=== PATIENT | male | born 1960 | race Caucasian/White ===

== ENCOUNTER 2017-03-02 14:06 | Emergency (ER) | payer OTHER ==
[2017-03-02 14:15] VITALS: PULSE 62; RESP 16; TEMP 97.9
--- NOTE | 2017-03-02 14:37 | CPEKG ---
Heart Rate: 61 RR Interval: 984 P-R Interval: 232 QRSD Interval: 102 QT Interval: 400 QTC Interval: 403 P [place]: -53 QRS [place]: 123 T Wave [place]: 199 EKG Severity - ABNORMAL ECG - EKG Impression: SINUS OR ECTOPIC ATRIAL RHYTHM EKG Impression: FIRST DEGREE AV BLOCK EKG Impression: PROBABLE RIGHT VENTRICULAR HYPERTROPHY EKG Impression: NONSPECIFIC T ABNORMALITIES, LATERAL LEADS EKG Impression: When compared to prior EKG dated 02/28/2017, performed at [facility] EKG Impression: Hospital appreciate no significant interval change- stable anterolateral EKG Impression: T-wave inversions are present. Electronically Signed By: Jf Leung 03-Mar-2017 00:48:54
[2017-03-02 15:06] LABS: % IMMATURE GRANULYOCYTES 0.3 % (0.0-1.1); ABSOLUTE IMMATURE GRANULOCYTES 0.01 10^3/uL (0.00-0.10); ADD DIFF? NO; ADD MORPH? NO; ADD SCAN? NO; ATYPICAL LYMPHOCYTE FLAG 10 (0-99); FRAGMENT RBC FLAG 0 (0-99); HEMATOCRIT 41.2 % (40.0-51.0); HEMOGLOBIN 14.8 g/dL (13.7-17.5); LEFT SHIFT FLG 0 (0-99); LIPEMIA HEMOLYSIS FLAG 90 (0-99); MEAN CELL HEMOGLOBIN 33.2 pg (27.9-34.1); MEAN CELL HEMOGLOBIN CONCENTR. 35.9 g/dL (32.4-36.7); MEAN CELL VOLUME 92.4 fL (81.5-99.8); MEAN PLATELET VOLUME 10.5 fL (8.7-11.7); PLATELET CLUMPS FLAG 0 (0-99); PLATELET COUNT 132 10^3/uL (150-400); RED BLOOD CELL COUNT 4.46 10^6/uL (4.40-6.38); RED CELL DISTRIBUTION WIDTH 12.7 % (11.5-15.2)
[2017-03-02 15:22] LABS: ALANINE AMINOTRANSFERASE 51 IU/L (21-72); ALBUMIN 3.6 g/dL (3.5-5.0); ALKALINE PHOSPHATASE 130 IU/L (38-126); ANION GAP 9 mEq/L (8-16); ASPARTATE AMINOTRANSFERASE 37 IU/L (17-59); BILIRUBIN,TOTAL 1.5 mg/dL (0.1-1.4); BILIRUBIN-CONJUGATED 0.5 mg/dL (0.0-0.5); CARBON DIOXIDE 26 mEq/l (22-31); CHLORIDE 102 mEq/L (97-110); CREATININE 0.9 mg/dL (0.7-1.3); GLOMERULAR FILTRATION RATE > 60; GLUCOSE 81 mg/dL (70-100); POTASSIUM 3.8 mEq/L (3.5-5.2); SODIUM 137 mEq/L (134-144); TOTAL PROTEIN 6.6 g/dL (6.3-8.2)
[2017-03-02 15:48] LABS: APTT 37.5 SEC (23.0-38.0); INR 2.45 (0.83-1.16); PROTIME(PATIENT) 26.4 SEC (12.0-15.0)
--- NOTE | 2017-03-02 17:15 | UCPHY ---
H & P Patient Type: Established Chief Complaint Nursing Narrative: r upper abd pain x several months intermittently. denies n/v/d Time Seen by Provider: 03/02/17 15:32 HPI/ROS: This patient has had 3 months of intermittent right upper quadrant pain with no clear exacerbating factors. He reports peak intensity is 3/10. He describes the nature of the pain as achy. He noticed last night that he had tenderness to the area when he rolled on his side while in bed. He also noted that while walking he had increased pain in the area this week. He is on the same walk in the past without any symptoms. Yesterday while golfing and jogging to get his golf ball he reports an episode that felt like fluttering in his chest mild discomfort in the same area. This was fleeting and resolved without intervention. He has also noticed in recent months more dyspnea on exertion that in the past. ROS: No fevers or chills. No significant fatigue. No other constitutional symptoms. HEENT: No recent URI symptoms. No sore throat. Pulmonary: No pleuritic pain. No coughing. Cardiovascular: The patient has no chest pain. He did have his description of a vibration in his chest yesterday when he was jogging after golf ball. None no heart palpitations or strain sensations chest since. GI: He has noticed any significant association between the right upper quadrant pain in eating. No nausea vomiting. No change in his bowel habits- typically a bowel movement a day or so. : No urinary symptoms. Integumentary: No skin rash. 10 point ROS is otherwise negative. 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 valve replacement Atrial fib cardioverted to arrival in a scheduled cardioversion at [facility] I reviewed recent pertinent Med records/test results including: CT angiogram with and without contrast at [facility] dated February 12, 2017 with no evidence of new aortic aneurysm, dissection or leak Persistent a large amount of pulmonary arteries suggestive of pulmonary hypertension and otherwise normal recent elevated BNP he of 634 dated 02/06/2017 Abdominal ultrasound-complete dated 11/19/2016-[facility]: Mild splenomegaly, normal appearing gallbladder without cholelithiasis, gallbladder wall thickening or biliary obstruction Patient's RN also informed me that the patient had normal upper and lower endoscopy within the last 6 months. Hx Asthma: No Hx Chronic Respiratory Disease: No Hx Diabetes: No Hx Cardiac Disease: No Hx Renal Disease: No Hx Cirrhosis: No Hx HIV/AIDS: No Hx Splenectomy or Spleen Trauma: No Other PMH: atrial fib - Family History Significant Family History: Heart disease - Social History Smoking Status: Never smoked Alcohol Use: Occasionally Drug Use: None - Physical Exam Exam: Normal vital signs General Appearance: Alert, no distress. Eyes: Pupils equal and round no pallor or injection. ENT, Mouth: Mucous membranes moist. Respiratory: There are no retractions, lungs are clear to auscultation. Cardiovascular: Regular rate and rhythm with mechanical click consistent with mechanical aortic valve. No significant murmur. No JVD or significant peripheral edema. Gastrointestinal: Normoactive, soft, mild to moderate right upper quadrant tenderness with no hepatomegaly appreciated. No guarding or rebound. No lower belly tenderness. He has clean dry intact surgical scars Neurological: GCS 15 with no focal sensory motor deficits. Skin: Warm and dry, no rashes. Musculoskeletal: Neck is supple nontender. Extremities are symmetrical, full range of motion. Psychiatric: Mood and affect normal DIFFERENTIAL DIAGNOSIS: After history and physical exam differential diagnosis was considered for biliary disease, hepatitis, surgical adhesions, coronary disease, gut ischemia, Constitutional: Initial Vital Signs Temperature (C) 36.6 C 03/02/17 14:13 Heart Rate 62 03/02/17 14:13 Respiratory Rate 16 03/02/17 14:13 Blood Pressure 107/74 03/02/17 14:13 O2 Sat (%) 95 03/02/17 14:13 O2 Delivery Mode Room Air Allergies/Adverse Reactions: No Known Allergies Allergy (Verified 10/17/15 13:38) Home Medications: Medication Instructions Recorded Fish Oil 03/10/15 Vitamin B12 (OTC) 03/10/15 Warfarin Sodium [Coumadin 2.5MG 03/10/15 (RX)] Diltiazem 03/02/17 Flecainide Acetate 03/02/17 Medical Decision Making - Diagnostics EKG Interpretation: 12 lead EKG performed shortly after arrival at 1435 reveals sinus rhythm first- degree block, LVH T-wave inversions anterolaterally. This is compared to an EKG faxed from [facility] dated February 28, 2017 with no significant interval change. Overall assessment: sinus rhythm first-degree AV block stable anterolateral T- wave abnormalities with RVH. For complete read please refer to trace master. ED Course/Re-evaluation: Studies: INR is therapeutic at 2.45 CBC normal Troponin normal BNP is just over 300-about half of what was a previous check. Comp metabolic panel normal with exception of minimally elevated alk-phos and T bili Discussion: The cause of this patient's intermittent right upper quadrant pain is unclear. Question possible biliary sludge though this was not appreciated on previous ultrasound. After workup today, I do not think he has thromboembolic phenomenon given therapeutic INR. Given stable appearing EKG and no history of prior significant coronary disease and not think he is having coronary syndrome or SD. No other concerning findings on workup today. Patient declined analgesics while here stating he has minimal symptoms currently. I counseled patient is regarding today's findings and advised follow up with their electronic equipment repairmen and primary care physician - Data Points Laboratory Results: Laboratory Results 03/02/17 14:58 03/02/17 14:58 03/02/17 03/02/17 03/02/17 Unknown Unknown Unknown WBC RBC Hgb Hct MCV MCH MCHC RDW Plt Count MPV Neut % (Auto) Lymph % (Auto) [place] % (Auto) Eos % (Auto) Baso % (Auto) Nucleat RBC Rel Count Absolute Neuts (auto) Absolute Lymphs (auto) Absolute Monos (auto) Absolute Eos (auto) Absolute Basos (auto) Absolute Nucleated RBC Immature Gran % Immature Gran # PT 26.4 SEC H SEC (12.0-15.0) INR 2.45 H (0.83-1.16) APTT 37.5 SEC SEC (23.0-38.0) Sodium Potassium Chloride Carbon Dioxide Anion Gap BUN Creatinine Estimated GFR Glucose Calcium Total Bilirubin Conjugated Bilirubin Unconjugated Bilirubin AST ALT Alkaline Phosphatase Troponin I < 0.012 ng/mL ng/mL (0-0.034) NT-Pro-B Natriuret Pep 330 pg/mL H pg/mL (0-125) Total Protein Albumin Lipase 03/02/17 03/02/17 14:58 14:58 WBC 3.96 10^3/uL 10^3/uL (3.80-9.50) RBC 4.46 10^6/uL 10^6/uL (4.40-6.38) Hgb 14.8 g/dL g/dL (13.7-17.5) Hct 41.2 % % (40.0-51.0) MCV 92.4 fL fL (81.5-99.8) MCH 33.2 pg pg (27.9-34.1) MCHC 35.9 g/dL g/dL (32.4-36.7) RDW 12.7 % % (11.5-15.2) Plt Count 132 10^3/uL L 10^3/uL (150-400) MPV 10.5 fL fL (8.7-11.7) Neut % (Auto) 68.3 % % (39.3-74.2) Lymph % (Auto) 19.7 % % (15.0-45.0) [place] % (Auto) 7.1 % % (4.5-13.0) Eos % (Auto) 3.8 % % (0.6-7.6) Baso % (Auto) 0.8 % % (0.3-1.7) Nucleat RBC Rel Count 0.0 % % (0.0-0.2) Absolute Neuts (auto) 2.71 10^3/uL 10^3/uL (1.70-6.50) Absolute Lymphs (auto) 0.78 10^3/uL L 10^3/uL (1.00-3.00) Absolute Monos (auto) 0.28 10^3/uL L 10^3/uL (0.30-0.80) Absolute Eos (auto) 0.15 10^3/uL 10^3/uL (0.03-0.40) Absolute Basos (auto) 0.03 10^3/uL 10^3/uL (0.02-0.10) Absolute Nucleated RBC 0.00 10^3/uL 10^3/uL (0-0.01) Immature Gran % 0.3 % % (0.0-1.1) Immature Gran # 0.01 10^3/uL 10^3/uL (0.00-0.10) PT INR APTT Sodium 137 mEq/L mEq/L (134-144) Potassium 3.8 mEq/L mEq/L (3.5-5.2) Chloride 102 mEq/L mEq/L (97-110) Carbon Dioxide 26 mEq/l mEq/l (22-31) Anion Gap 9 mEq/L mEq/L (8-16) BUN 24 mg/dL H mg/dL (7-23) Creatinine 0.9 mg/dL mg/dL (0.7-1.3) Estimated GFR > 60 Glucose 81 mg/dL mg/dL (70-100) Calcium 9.0 mg/dL mg/dL (8.5-10.4) Total Bilirubin 1.5 mg/dL H mg/dL (0.1-1.4) Conjugated Bilirubin 0.5 mg/dL mg/dL (0.0-0.5) Unconjugated Bilirubin 1.0 mg/dL mg/dL (0.0-1.1) AST 37 IU/L IU/L (17-59) ALT 51 IU/L IU/L (21-72) Alkaline Phosphatase 130 IU/L H IU/L (38-126) Troponin I NT-Pro-B Natriuret Pep Total Protein 6.6 g/dL g/dL (6.3-8.2) Albumin 3.6 g/dL g/dL (3.5-5.0) Lipase 116.0 IU/L IU/L (23-300) Departure - Departure Disposition: Home, Routine, Self-Care Clinical Impression: Right upper quadrant abdominal pain Condition: Good Instructions: Acute Abdominal Pain (ED) Additional Instructions: Diagnosis: Right upper quadrant abdominal pain Plan: [place] diet until feel improved Call your GI specialist inquire about further workup of the gallbladder given mild elevation of her alk-phos and bilirubin. The area of tenderness seems to correspond with gallbladder liver. Liver function tests are normal today. Go to the emergency department for any significant worsening despite the treatment plan. Referrals: NONE *PRIMARY CARE P,. [Primary Care Provider] - As per Instructions - PQRS PQRS Measurement: NA
[2017-03-02 17:39] VITALS: BP 120/86; O2SAT 93
== END 2017-03-02 17:39 | disposition home or self-care (01) ==
LOC: CED 14:06
DX: R10.11 Right upper quadrant pain (principal)
CPT/HCPCS: 80048-PO; 80076-PO; 83690-PO; 83880-PO; 84484-PO; 85025-PO; 85610-PO; 85730-PO; 93010-PO; 99215-PO; G0463-PO

== ENCOUNTER → 2017-05-25 | Outpatient (CLI) | payer OTHER | LOC: SBRMNEURO 21:30 | PROVIDERS: ATTEND Psychiatry & Neurology Sleep Medicine | DX: G47.33 Obstructive sleep apnea (adult) (pediatric) (principal); G47.31 Primary central sleep apnea ==

== ENCOUNTER → 2019-01-05 | Outpatient (CLI) | payer BC | LOC: FIMAGING 14:54 | PROVIDERS: ATTEND Physician Assistant | DX: R05 Cough (principal); C91.40 Hairy cell leukemia not having achieved remission ==